=== PATIENT | male | born 1990 | race Caucasian/White ===

== ENCOUNTER 2017-11-11 16:36 | Emergency (ER) | payer OTHER ==
[2017-11-11 16:49] VITALS: BP 157/77; PULSE 69; RESP 16; TEMP 98.8; O2SAT 95
--- NOTE | 2017-11-11 17:18 | EDPHY ---
General Narrative: CHIEF COMPLAINT: Left eye pain HISTORY OF PRESENT ILLNESS: The patient complains of left eye pain. He says that he has 3 weeks duration of pains in conjunction with an infection that has been diagnosed by his clinical psychiatrist. He does not know the name of the infection but says that it is "extensive." He is on his 2nd course of ophthalmic antibiotics for this. He says that he has drainage, purulence and crusting in the morning. No fever. No systemic complaints. No surrounding redness or warmth. No headache. No syncope. He has no vision in the eye due to trauma remotely. He does have increasing pain, which is worse than his baseline pain that he has had from this. He has had multiple evaluations and is considering enucleation of the eye due to the ongoing pain that he has. His primary complaint today is that he is not tolerating the pain and not sleeping because the pain. No other associated complaints or modifying factors. REVIEW OF SYSTEMS: Ten systems reviewed and are negative unless otherwise noted in the HPI PCP: Dr. Lockwood SPECIALISTS: Ophthalmology, Dr. Schmidt PAST MEDICAL HISTORY: Left eye trauma, anxiety, chronic pain SOCIAL HISTORY: Nonsmoker. FAMILY HISTORY: Noncontributory EXAMINATION General Appearance: Alert, no distress Head: normocephalic, atraumatic Eyes: Right pupil is 5 mm, round and reactive slight. The left pupil is nonreactive at baseline. There is hazy discoloration over the cornea reportedly baseline. Mild conjunctival injection. No surrounding erythema or erythema of the eyelid. No edema of the eyelid. No pain in the right eye with EOMs. Pain in the left eye with EOM is reportedly no worse than typical for him. ENT, Mouth: Mucous membranes moist. Airway patent Neck: Normal inspection, supple, non-tender Respiratory: No retractions or distress. Cardiovascular: Regular rate. Good signs of perfusion. Neurological: A&O, nonfocal Skin: Warm and dry, no rash. No erythema of the forehead or periorbital skin. No erythema of the left eyelid. Extremities: Nontender, no pedal edema Psychiatric: Mood and affect normal DIFFERENTIAL DIAGNOSES: Including but not limited to conjunctivitis, retrobulbar abscess, orbital cellulitis, periorbital cellulitis MDM: 5:12 p.m. Left eye conjunctivitis with chronic pain from remote left eye trauma. No signs of periorbital or orbital cellulitis. 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 He has been on antibiotics from his clinical psychiatrist with no signs of worsening or systemic complaints. His vital signs are within normal limits. His primary complaint is pain control. I informed him that I can't provide a short course of pain medication for the patient until he can follow up with primary care physician. Additionally I can provide the on-call clinical psychiatrist and primary care physician at his request. I do not feel he warrants any laboratory studies or imaging at this time. I offered to contact our clinical psychiatrist this evening and he has declined. He is happy to follow up with them with the office tomorrow. Discharged home with medications as prescribed and follow up with Ophthalmology and primary care physician. SUPERVISION: This patient was independently evaluated without direct involvement of or examination by the attending physician. - History Smoking Status: Current some day smoker - Objective Vital Signs: Initial Vital Signs Temperature (C) 98.8 F 11/11/17 16:45 Heart Rate 69 11/11/17 16:45 Respiratory Rate 16 11/11/17 16:45 Blood Pressure 157/77 H 11/11/17 16:45 O2 Sat (%) 95 11/11/17 16:45 O2 Delivery Mode Room Air Allergies/Adverse Reactions: No Known Allergies Allergy (Unverified 11/11/17 16:43) Home Medications: Medication Instructions Recorded Fentanyl 11/11/17 Oxycodone HCl 11/11/17 Tobramycin 11/11/17 Xanax 11/11/17 hydrOXYzine HCL [Hydroxyzine HCl] 50 mg PO Q6-8PRN PRN #12 tablet 11/11/17 oxyCODONE HCL/ACETAMINOPHEN 1 each PO Q6 PRN #12 tablet 11/11/17 [Percocet 7.5-325 mg Tablet] Departure - Departure Disposition: Home, Routine, Self-Care Clinical Impression: Left eye pain Conjunctivitis, left eye Qualifiers: Conjunctivitis type: acute Acute conjunctivitis type: unspecified Qualified Code(s): H10.32 - Unspecified acute conjunctivitis, left eye Condition: Good Instructions: Eye Pain (ED), Conjunctivitis (ED) Additional Instructions: 1. Medication as prescribed as needed 2. Contact the on-call clinical psychiatrist as provided 3. Contact the on-call primary care physician as provided 4. Contact established physicians for outpatient follow-up as well 5. ED precautions as discussed Referrals: PLACIDO LOCKWOOD [Other] - As per Instructions Jr Enciso MD [Medical Doctor] - As per Instructions Angela Schmidt MD [Non Staff Provider (MD)] - As per Instructions Prescriptions: hydrOXYzine HCL [Hydroxyzine HCl] 50 mg PO Q6-8PRN PRN #12 tablet PRN Reason: Itching oxyCODONE HCL/ACETAMINOPHEN [Percocet 7.5-325 mg Tablet] 1 each PO Q6 PRN #12 tablet PRN Reason: Pain, Breakthrough
== END 2017-11-11 17:38 | disposition home or self-care (01) ==
DX: H10.32 Unspecified acute conjunctivitis, left eye (principal); F17.200 Nicotine dependence, unspecified, uncomplicated

== ENCOUNTER 2019-05-18 13:40 | Emergency (ER) | payer OTHER | END 2019-05-18 15:19 | disposition home or self-care (01) ==